=== PATIENT | male | born 1970 | race Caucasian/White ===

== ENCOUNTER 2024-06-28 07:05 | Emergency (ER) | payer SELFPAY ==
[2024-06-28 07:10] VITALS: BP 137/93; PULSE 87; TEMP 36.8; O2SAT 99; BMI 30.4
--- NOTE | 2024-06-28 07:19 | XR_ITS ---
The [address] [address] Patient Name: MARSHA LEUNG MRN: [id number] date: 1970 Sex: M Assigned Patient Location: ER Current Patient Location: ED.MAIN Accession/Order Number: [id number] Exam Date: 06/28/2024 07:29 Report Date: 06/28/2024 08:00 At the request of: PETRA ONEAL Procedure: XR ribs RT min 3V w CXR1V EXAMINATION: XR ribs RT min 3V w CXR1V HISTORY: fall, pain left lower post lat COMPARISON: No relevant comparison available. FINDINGS: LUNGS: No significant pulmonary parenchymal abnormalities. PLEURA: No pneumothorax, effusion, or pleural thickening. MEDIASTINUM: No visible mass or adenopathy. CARDIAC: No cardiomegaly or cardiac silhouette abnormality. RIBS: No significant arthropathy or acute abnormality. OTHER: Negative. XR/XR ribs RT min 3V w CXR1V IMPRESSION: 1. No acute cardiopulmonary process. 2. No convincing rib abnormality. Electronically authenticated by: CATHERINE SHAHID Date: 06/28/2024 08:00
--- NOTE | 2024-06-28 07:20 | ED.BACK1 ---
HPI HPI - Back Pain/Injury General Chief Complaint: Back Pain/Injury Stated Complaint: FALL Time Seen by Provider: 06/28/24 07:11 Mode of arrival: walk-in History of Present Illness HPI Narrative: 53-year-old male presents for right lower posterior lateral rib pain. He fell on ice last night and landed on this area. He did not hit his head and he does not have any other injury. It hurts more in certain positions. He does not complain of shortness of breath or abdominal pain or any left-sided pain. Related Data Previous Rx's ?Medication ?Instructions ?Recorded ibuprofen 800 mg tablet 800 mg PO Q8H PRN pain #20 tabs 06/28/24 Allergies Allergy/AdvReac Type Severity Reaction Status Date / Time acetaminophen (From Tylenol) AdvReac Severe Hives Verified 06/28/24 07:10 Opioid HPI Opioid Management Most Recent Opioid Data: Last Pain Scale 9 06/28/24 07:18 06/28/24 Review of Systems ROS Narrative A ten point review of systems is negative except as noted above. PFSH PFSH Social History Little interest or pleasure in doing things: not at all Feeling down, depressed, or hopeless: not at all Exam Narrative Exam Narrative: Nurses note and vital signs reviewed and patient is not hypoxic. General: The patient is sitting on the examination cart doing some paperwork. He appears uncomfortable from time to time. Skin: Warm, dry, no pallor noted. There is no rash noted. Head: Normocephalic, atraumatic Eye: Normal conjunctiva, no drainage Ears, Nose, Mouth, and Throat: oral mucosa is moist. Nares patent. Cardiovascular: Regular Rate and Rhythm Respiratory: Patient is in no distress, no accessory muscle use, lungs are clear to auscultation, no wheezing, rales or rhonchi Back: No bruise or abrasion. He has no tenderness in the thoracic or lumbar spines. He has tenderness in his right lower posterior lateral rib area without crepitus bruise or abrasion GI: Soft and nontender Musculoskeletal: The patient has no evidence of calf tenderness, no pitting edema, symmetrical pulses noted bilaterally Neurological: A&O normal speech Psychiatric: Cooperative Constitutional Vital Signs, click to edit/add: Last Vital Signs Temp 98.2 F 06/28/24 07:10 Pulse 86 06/28/24 08:14 Resp 18 02/13/25 08:14 BP 130/70 06/28/24 08:14 Pulse Ox 99 06/28/24 08:14 O2 Del Method Room Air 06/28/24 07:10 Course Vital Signs Vital signs: Vital Signs Temperature 98.2 F 06/28/24 07:10 Pulse Rate 87 06/28/24 07:10 Respiratory Rate 18 06/28/24 07:10 Blood Pressure 137/93 H 06/28/24 07:10 Pulse Oximetry 99 06/28/24 07:10 Oxygen Delivery Method Room Air 06/28/24 07:10 Temperature 98.2 F 06/28/24 07:10 Pulse Rate 86 06/28/24 08:14 Respiratory Rate 18 06/28/24 08:14 Blood Pressure 130/70 06/28/24 08:14 Pulse Oximetry 99 06/28/24 08:14 Oxygen Delivery Method Room Air 06/28/24 07:10 MDM - Back Pain/Injury MDM Narrative Medical decision making narrative: X-rays are negative and he will be treated symptomatically. Treatment diagnosis and follow-up were discussed with the patient. Differential Diagnosis Differential diagnosis: Likely other (Rib contusion, rib fracture, pneumothorax) Imaging Data Rib x-rays: Radiologist's impression: ITS Impressions Ribs X-Ray 06/28/24 07:19 IMPRESSION: 1. No acute cardiopulmonary process. 2. No convincing rib abnormality. Electronically authenticated by: CATHERINE SHAHID Date: 06/28/2024 08:00 Discharge Plan Discharge Chief Complaint: Back Pain/Injury Clinical Impression: Rib contusion Patient Disposition: Home, Self-Care Time of Disposition Decision: 08:30 Condition: Good Mode of Transportation: Private Vehicle Prescriptions / Home Meds: New ibuprofen 800 mg tablet 800 mg PO Q8H PRN (Reason: pain) Qty: 20 0RF Print Language: Singaporean Instructions: Rib Contusion (ED) Referrals: Physician,Non-Staff, MD [Primary Care Provider] - 1 week
[2024-06-28 08:14] VITALS: BP 130/70; PULSE 86; O2SAT 99
[2024-06-28] MEDS: IBUPROFEN 400 MG TABLET 800 MG PO (08:42)
[2024-06-28 08:45] VITALS: BP 132/74; PULSE 86; O2SAT 98
== END 2024-06-28 08:46 | disposition home or self-care (01) ==
PROVIDERS: Emergency Provider Emergency Medicine
DX: S20.211A Contusion of right front wall of thorax, initial encounter (principal); W00.0XXA Fall on same level due to ice and snow, initial encounter
CPT/HCPCS: 71101; 99283